=== PATIENT | male | born 1960 | race Caucasian/White ===

== ENCOUNTER → 2019-05-20 08:27 | Outpatient (CLI) | payer BC, SELFPAY ==
[2019-05-19 10:00] VITALS: BMI 30.4
[2019-05-20 09:54] LABS: AST(SGOT) 17 U/L (15-37); Alanine Aminotransfer ALT/SGPT 30 U/L (16-61); Albumin, Serum 3.5 g/dL (3.2-5.0); Alkaline Phosphatase 65 U/L (45-117); Bilirubin, Direct 0.06 mg/dL (0.00-0.30); Cholesterol 146 mg/dL (200); Globulin 3.7 g/dL (2.2-4.2); High Density Lipoprotein 33 mg/dL; Protein, Total 7.2 g/dL (6.4-8.2); Triglycerides 89 mg/dL; Very Low Density Lipoprotein 18 mg/dL (5-40)
== END ==
PROVIDERS: Referring Provider Internal Medicine Cardiovascular Disease; Visit Provider Internal Medicine Cardiovascular Disease
DX: E78.5 Hyperlipidemia, unspecified (principal); E78.6 Lipoprotein deficiency; Z82.41 Family history of sudden cardiac death
CPT/HCPCS: 36415; 80061; 80076

== ENCOUNTER → 2019-06-09 11:33 | Outpatient (CLI) | payer SELFPAY ==
[2019-05-19 10:00] VITALS: BMI 30.4
--- NOTE | 2019-06-09 11:43 | CT_ITS ---
STUDY: CARDIAC CALCIUM SCORING - CT CHEST REASON FOR EXAM: Male, 58 years old. Calcium scoring screening RADIATION DOSAGE (If Supplied By Facility): CTDIvol = ( 12.19 ) mGy, DLP = ( 219.42 ) mGycm TECHNIQUE: Axial non-enhanced images were acquired through the heart for the sole purpose of measuring coronary artery calcium. Individualized dose optimization techniques were used for this CT. COMPARISON: None. FINDINGS: Visualized surrounding anatomy: Normal. Left Main Coronary Artery: 49.9 Left Anterior Descending Artery: 40.1 Left Circumflex Artery: 0 Right Coronary Artery: 0 Other: There are calcified right axillary lymph nodes. There is mild free fluid in the pericardiac space. There is a 2 mm right fissural nodule on series 3 image 13. There is a 3 mm right upper lobe nodule abutting the mediastinal pleura on image 4. Total Calcium Score: 98 CT/Limited Chest CT w/CCTA IMPRESSION: A Calcium Score of 98 places the patient in the approximate 50-75 percentile, based on the [facility] data calculator. 2-3 mm pulmonary nodules. If high risk for developing pulmonary malignancy continued annual chest CT is recommended. If low risk, no follow-up is recommended Please go to: [email or web address] , for a description of the calculator. Electronically Signed: Jaylan Rice, at 16:59 EST Tel , Service support ,
[2019-06-09 11:55] VITALS: BP 141/90; PULSE 57; RESP 16; O2SAT 98; BMI 29.8
--- NOTE | 2019-06-09 15:36 | CA.SCORE ---
Calcium Scoring Date of Study:: 06/09/19 Coronary Calcium Scoring: High-resolution Computed Tomographic imaging of the chest was performed on [06/09/2019 ], with particular attention paid to the coronary arteries. Images from the examination were analyzed for the presence and extent of coronary artery calcification , using coronary calcium quantification software. The patient tolerated the procedure well and there were no complications. The results of the coronary calcification analysis are provided below. - Findings Left Main (LM): 49.9 Left Anterior Descending (LAD): 48.1 Left Circumflex (LCX): 0 Right Coronary Artery (RCA): 0 Total Agatston Score: 98.0 Percentile Ranking: Between 50 and 75% Calcium Scoring Interpretation: 0 No identifiable atherosclerotic plaque. Very low cardiovascular disease risk. <5% chance of presence coronary artery disease A Negative Examination 1-10 Minimal Plaque burden. Significant coronary artery disease very unlikely. 11-100 Mild plaque burden. Likely mild or minimal coronary atherosclerosis. 101-400 Moderate plaque burden Moderate non-obstructive coronary artery disease highly likely. Over 400 Extensive plaque burden. High likelihood of at least one significant coronary stenosis (>50% diameter) Conclusion: Total calcium score (98.0) is between the 50th and 75th percentile for men between the ages of 55 and 59. (Exact percentile calculated to be 56%; this means 55% of the population has a lower calcium score and 44% of the population has a higher calcium score than this patient.) A full evaluation of cardiac risk include an assessment of all conventional risk factors, and the scores and percentile rankings reported herein should be evaluated in this context.
== END ==
PROVIDERS: Referring Provider Physician Assistant Medical; Visit Provider Physician Assistant Medical
DX: E78.5 Hyperlipidemia, unspecified (principal)
CPT/HCPCS: 75571; 76380